=== PATIENT | male | born 1985 | race Caucasian/White ===

== ENCOUNTER 2024-05-24 19:39 | Outpatient (OUT) | payer OTHER, SELFPAY | END 2024-05-24 19:40 | disposition home or self-care (01) | LOC: SLEEP 19:40 | PROVIDERS: PCP Psychiatry & Neurology Neurology; Visit Provider Psychiatry & Neurology Neurology | DX: G47.33 Obstructive sleep apnea (adult) (pediatric) (principal) | CPT/HCPCS: 95810 ==